=== PATIENT | male | born 1975 | race Two or more races ===

== ENCOUNTER 2017-12-28 17:10 | Inpatient (IN) | payer MEDICAID ==
[~2017-12-28] VITALS: Ht 170.2 cm; Wt 83.5 kg
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
--- NOTE | 2017-12-28 17:24 | NUR ---
DR HOBBS AT BEDSIDE FOR EVAL.
--- NOTE | 2017-12-28 17:40 | NUR ---
NEW IV STARTED ON LAC, 18G. BLOOD DRAWN AND SENT TO LAB
[2017-12-28 17:48] LABS: BASOPHILS % (AUTO) 0.3 % (0.0-2.0); EOSINOPHILS % (AUTO) 0.9 % (0.0-6.0); HEMATOCRIT 44 % (39-51); HEMOGLOBIN 14.9 g/dL (13.5-17.5); LYMPHOCYTES % (AUTO) 9.4 % (20.0-44.0); MEAN CORPUSCULAR HGB CONC 34 g/dl (31.0-36.0); MEAN CORPUSCULAR VOLUME 93 fL (80-96); MONOCYTES # (AUTO) 0.4 /CMM (0.1-1.30); MONOCYTES % (AUTO) 3.4 % (2.0-12.0); NEUTROPHILS # (AUTO) 9.1 /CMM (1.8-8.9); PLATELET COUNT (AUTO) 173 /CMM (150-450); RDW COEFFICIENT OF VARIATION 12.2 (11.5-15.0); RED BLOOD CELL COUNT(AUTO) 4.74 MIL/uL (4.5-6.0); WHITE BLOOD COUNT (AUTO) 10.6 K/uL (4.3-11.0)
[2017-12-28 17:58] LABS: CALCIUM, SERUM 8.4 mg/dL (8.5-10.1); CARBON DIOXIDE 30 mmol/L (21-32); CHLORIDE 105 mmol/L (98-107); GLUCOSE 114 mg/dL (74-106); POTASSIUM 3.6 mmol/L (3.5-5.1); SODIUM SERUM 137 mmol/L (136-145); UREA NITROGEN, BLOOD 14 mg/dL (7-18)
[2017-12-28 18:03] LABS: INR 0.97 (0.85-1.15)
[2017-12-28 18:04] LABS: ALANINE AMINOTRANSFERASE 22 U/L (12-78); ALBUMIN 4.2 g/dL (3.4-5.0); ALKALINE PHOSPHATASE 92 U/L (46-116); ASPARTATE AMINOTRANSFERASE 18 U/L (15-37); BILIRUBIN,DIRECT 0.2 mg/dL (0.0-0.2); BILIRUBIN,TOTAL 1.4 mg/dL (0.2-1.0); LIPASE 103 U/L (73-393); TOTAL PROTEIN, SERUM 7.4 g/dL (6.4-8.2)
[2017-12-28 18:06] LABS: TROPONIN I < 0.017 ng/mL (0.00-0.056)
[2017-12-28] MEDS ORDERED: IOHEXOL-300 100 ML VIAL IV ONE (18:09)
[2017-12-28] MEDS ORDERED: CT SWABBABLE VALVE TRANS SET 1 EA INFUS.SET MC ONE (18:09)
[2017-12-28] MEDS ORDERED: IV NS 0.9% 250 ML IV ONE (18:09)
--- NOTE | 2017-12-28 18:14 | NUR ---
PATIENT TAKEN TO CT VIA STRETCHER.
--- NOTE | 2017-12-28 18:27 | NUR ---
PATIENT RETURNED FROM CT IN STABLE CONDITION.
--- NOTE | 2017-12-28 19:06 | NUR ---
URINE OBTAINED AND SENT TO LAB.
--- NOTE | 2017-12-28 19:10 | NUR ---
REPORT GIVEN TO ADALGISA BLEVINS FOR ZEYNEP.
[2017-12-28 19:12] LABS: APPEARANCE,URINE Clear (CLEAR); BILIRUBIN,URINE Negative (NEGATIVE); BLOOD, URINE Moderate Ery/uL (NEGATIVE); COLOR,URINE Yellow (YELLOW); KETONES,URINE Negative (NEGATIVE); LEUKOCYTE ESTERASE ,URINE Trace (NEGATIVE); NITRITE, URINE Positive (NEGATIVE); PH,URINE 5.5 (5.0-8.0); PROTEIN,URINE Negative (NEGATIVE); UGLUCOSE Negative (NEGATIVE)
[2017-12-28 19:26] LABS: BACTERIA,URINE Many /HPF (None Seen); SQUAMOUS EPITHELIAL CELL,UR Few /HPF (None Seen)
[2017-12-28] MEDS ORDERED: PIPERACILLIN /TAZOBACTAM 3.375 G in IV D5W 50 ML IV ONE (19:30)
--- NOTE | 2017-12-28 19:37 | NUR ---
CALLED PHARMACY FOR TAHIRA
--- NOTE | 2017-12-28 19:41 | NUR ---
PAGED DR MORRISON FOR SURGERY CONSULT
--- NOTE | 2017-12-28 20:08 | NUR ---
US TECH AT BEDSIDE
[2017-12-28] MEDS ORDERED: MAGNESIUM HYDROXIDE 30 ML UDC PO PRN (20:30)
[2017-12-28] MEDS ORDERED: ONDANSETRON HCL/PF 4 MG/2 ML VIAL IVP PRN (20:30)
[2017-12-28] MEDS ORDERED: ONDANSETRON HCL/PF - ER 4 MG/2 ML VIAL IV ONE (20:30)
[2017-12-28] MEDS ORDERED: Z GUARD REMEDY 2 OZ OINT TP PRN (20:30)
[2017-12-28] MEDS ORDERED: MAG HYDROX/AL HYDROX/SIMETH 30 ML UDC PO PRN (20:30)
[2017-12-28] MEDS ORDERED: MORPHINE SULFATE INJ 2 MG/ML DISP.SYRIN IV PRN (20:30)
[2017-12-28] MEDS ORDERED: HYDROCODONE/APAP 5/325MG 1 EACH TABLET PO PRN (20:30)
[2017-12-28] MEDS ORDERED: ACETAMINOPHEN 325 MG TABLET PO PRN (20:30)
[2017-12-28] MEDS ORDERED: MORPHINE SULFATE INJ 2 MG/ML DISP.SYRIN IV ONE (20:30)
[2017-12-28] MEDS ORDERED: ZOLPIDEM TARTRATE 5 MG TABLET PO PRN (20:30)
--- NOTE | 2017-12-28 20:49 | NUR ---
REPORT GIVEN TO MICHAEL BLEVINS FOR ADMISSION
[2017-12-28] MEDS ORDERED: ONDANSETRON HCL/PF 4 MG/2 ML VIAL ONE (20:51)
[2017-12-28] MEDS ORDERED: MORPHINE SULFATE INJ 4 MG/ML DISP.SYRIN ONE (20:52)
--- NOTE | 2017-12-28 20:58 | NUR ---
PT TRANSPORTED TO [facility] IN GUARDED CONDITION VIA ACLS PROTOCOL WITH FAMILY AT BEDSIDE
[2017-12-28 21:00] VITALS: BP 132/84
--- NOTE | 2017-12-28 21:30 | NUR ---
X RAY OPERATOR NOTE: RECEIVED PATIENT FROM ER, NO ACUTE DISTRESS NOTED, FAMILY AT BEDSIDE. BREATHING EVEN AND UNLABORED, NO SOB NOTED. IV TO RIGHT HAND AND LAC IN PLACE. ORIENTED PATIENT TO ROOM AND USE OF CALL LIGHT. BED LOCKED AND IN LOWEST POSITION, CALL LIGHT IN REACH. WILL CONTINUE TO MONITOR. Addendum: 12/29/17 at 0147 by MICHAEL KERNS RN TELE READING SR 78.
[2017-12-29] MEDS: MORPHINE SULFATE INJ 4 MG/ML DISP.SYRIN IV PRN ×2 (01:27→07:08)
[2017-12-29] MEDS: IV NS 0.9% 1,000 ML IV PRN ×2 (01:27→18:58)
--- NOTE | 2017-12-29 01:45 | NUR ---
CALENDER OPERATOR NOTE: PATIENT COMPLAINS OF PAIN TO LEFT SHOULDER/CHEST/BACK AREA 8/, MORPHINE 2MG IV GIVEN PER MD ORDER. WILL CONTINUE TO MONITOR.
[2017-12-29 02:44] VITALS: BP 125/77
[2017-12-29 04:00] VITALS: BP 129/71
--- NOTE | 2017-12-29 06:05 | NUR ---
TRANSIT MIX OPERATOR NOTE: PATIENT RESTING IN BED, NO ACUTE DISTRESS NOTED, FAMILY AT BEDSIDE. BREATHING EVEN AND UNLABORED, NO SOB NOTED. IV TO RIGHT HAND IN PLACE. IV TO LAC IN PLACE, INFUSING NS AT 75 ML/HR. TELE READING SR 70. BED LOCKED AND IN LOWEST POSITION, CALL LIGHT IN REACH. WILL ENDORSE TODAY NURSE TO CONTINUE WITH PLAN OF CARE.
[2017-12-29 06:20] LABS: BASOPHILS % (AUTO) 0.3 % (0.0-2.0); EOSINOPHILS % (AUTO) 0.6 % (0.0-6.0); HEMATOCRIT 43 % (39-51); HEMOGLOBIN 14.2 g/dL (13.5-17.5); LYMPHOCYTES # (AUTO) 1.3 /CMM (0.8-4.8); LYMPHOCYTES % (AUTO) 15.6 % (20.0-44.0); MEAN CORPUSCULAR HGB CONC 33 g/dl (31.0-36.0); MEAN CORPUSCULAR VOLUME 95 fL (80-96); MONOCYTES # (AUTO) 0.6 /CMM (0.1-1.30); MONOCYTES % (AUTO) 7.1 % (2.0-12.0); NEUTROPHILS # (AUTO) 6.5 /CMM (1.8-8.9); NEUTROPHILS % (AUTO) 76.4 % (43.0-81.0); PLATELET COUNT (AUTO) 169 /CMM (150-450); RDW COEFFICIENT OF VARIATION 13.3 (11.5-15.0); RED BLOOD CELL COUNT(AUTO) 4.52 MIL/uL (4.5-6.0); WHITE BLOOD COUNT (AUTO) 8.5 K/uL (4.3-11.0)
[2017-12-29 06:54] LABS: ALBUMIN 3.8 g/dL (3.4-5.0); BILIRUBIN,TOTAL 1.8 mg/dL (0.2-1.0); CALCIUM, SERUM 8.2 mg/dL (8.5-10.1); CREATININE 0.9 mg/dL (0.6-1.3); POTASSIUM 3.7 mmol/L (3.5-5.1); TOTAL PROTEIN, SERUM 7.2 g/dL (6.4-8.2)
--- NOTE | 2017-12-29 07:30 | NUR ---
RN OPENING TELE NOTES RECEIVED PATIENT IN BED, RESTING, ACCOMPANIED BY AT BEDSIDE A&OX4, ENGLISH SPEAKING, VERBALLY RESPONSIVE AND ABLE TO MAKE NEEDS KNOWN. BREATHING SHALLOW BREATHS DUE TO PAIN OF THE LEFT UPPER CHEST AND SHOULDER. RECEIVED MORPHINE 20 MINUTES AGO, WILL REASSESS AFTER 15 MINUTES. VITALS REMAIN STABLE. RECEIVING IV FLUIDS VIA L AC #20, INFUSING NS @ 75ML/HR. PATIENT AWAITING SURGERY CONSULT FOR HEMOPERITONEUM, WILL CONTINUE TO MONITOR.
[2017-12-29 08:00] VITALS: BP 125/72
[2017-12-29 09:19] LABS: ABG BASE EXCESS 0.5 mmol/L; ABG OXYGEN SATURATION 94.8 % (92.0-98.5); ABG PCO2 40.1 mmHg (35.0-45.0); ABG PH 7.414 (7.350-7.450); ABG PO2 75.6 mmHg (75.0-100.0); AaDO2 26.1 mmHg; COHb 0.4 % (0.5-1.5); MetHb 0.5 % (0.0-1.5); O2Hb 93.9 % (94.0-97.0); SITE, ABG Right Radial; VENT MODE, BG ROOM AIR
--- NOTE | 2017-12-29 10:35 | NUR ---
ACCOUNT MANAGEMENT ASSISTANT NOTES PER DR. MORRISON, HE SAW THE PATIENT, WITH BENIGN ABDOMINAL EXAM, VERY STABLE, ORDERED TO START PT ON CLEAR LIQUID DIET.
[2017-12-29 11:35] LABS: HEMOGLOBIN 14.2 g/dL (13.5-17.5)
--- NOTE | 2017-12-29 12:35 | NUR ---
MARINA MANAGER NOTES SEEN BY PACKAGE LINE OPERATOR, PATIENT REMAINS STABLE, NO ACTIVE BLEEDING NOTED. 12:35 ADMINISTERED MORPHINE 2MG, WASTED PARTIAL DOSE OF 2 MG, DOSE LATER CHANGED TO 3MG BY PACKAGE LINE OPERATOR .
[2017-12-29] MEDS ORDERED: MORPHINE SULFATE INJ 4 MG/ML DISP.SYRIN IV PRN (13:30)
[2017-12-29] MEDS: CEFTRIAXONE 1 G in IV D5W 50 ML IV SCH (13:46)
[2017-12-29 16:00] VITALS: BP 110/66
--- NOTE | 2017-12-29 18:59 | NUR ---
DIESEL STATIONARY ENGINEER CLOSING NOTES PATIENT REMAINS IN BED, A&O X 4, BREATHING EVEN AND MINIMALLY LABORED. SWELLING FROM TONGUE VISIBLY REDUCED, SKIN DRY AND WARM TO TOUCH. PATIENT REMAINS STABLE. HUNG A NEW BAG OD NS 1000ML INFUSING AT 75ML/HR VIA L AC SITE AND TOLERATING. BED IN LOWEST LOCKED POSITION, ALL NEEDS ATTENDED TO. WILL ENDORSE TO BUSINESS INTELLIGENCE ENGINEER FOR ZEYNEP
--- NOTE | 2017-12-29 19:15 | NUR ---
MS RN NOTES RECEIVED PT IN BED, AWAKE, A/O X 4, VERBALLY RESPONSIVE. AT BEDSIDE. WATCHING TV AT THIS TIME. NO ACUTE DISTRESS NOR SOB AT THIS TIME. IV SITE ON LAC INTACT AND PATENT, NO S/S OF INFILTRATION NOTED, IVF INFUSING WELL. ON CLEAR LIQUID DIET, VERBALIZED UNDERSTANDING. PT C/O PAIN ON IV SITE ON RIGHT HAND, REQUESTED TO BE REMOVED, IV SITE ON RIGHT HAND REMOVED, PRESSURE APPLIED. NO BLEEDING NOTED. ICE PACK ON LEFT SHOULDER REFILLED. ALL NEEDS ATTENDED AND MET. COMFORTABLE VERBALIZED. SAFETY PRECAUTIONS OBSERVED. WILL CONTINUE TO MONITOR.
[2017-12-29 20:00] VITALS: BP 131/76
--- NOTE | 2017-12-29 20:27 | NUR ---
PT C/O LEFT SHOULDER PAIN 11/12, NON PHARMACOLOGICAL INTERVENTION RENDERED , ICE PACK APPLIED, INEFFECTIVE. PT REQUESTED FOR MORPHINE 3 MG GIVEN ORDERED, REMAINING 1 MG WASTED , WITNESSED BY GEN MCELROY. BP: 131/76, HR : 88, RR: 18, 02 SAT : 97 %, TEMP : 97.3. WILL CONT TO MONITOR.
--- NOTE | 2017-12-30 06:36 | NUR ---
MS RN NOTES PT IN BED, RESTING COMFORTABLY AT THIS TIME. A/O X 4, VERBALLY RESPONSIVE. NO ACUTE DISTRESS NOR SOB AT THIS TIME. IV SITE ON LAC INTACT AND PATENT, NO S/S OF INFILTRATION NOTED, IVF INFUSING WELL. ON CLEAR LIQUID DIET, CHRISTOPH WELL. ALL NEEDS ATTENDED AND MET. COMFORTABLE VERBALIZED. SAFETY PRECAUTIONS OBSERVED. WILL ENDORSE TO NEXT SHIFT FOR ZEYNEP.
--- NOTE | 2017-12-30 07:05 | NUR ---
MS RN NOTES PATIENT LYING IN BED, HOB, ALERT ORIENTED X 4. NO ACUTE DISTRESS NOTED. NO SOB NOTED. BREATHING UNLABORED.IVF INFUSING WELL, NO REDNESS OR SWELLING NOTED. SAFETY MEASURES IN PLACE. CALL LIGHT WITHIN REACH. WILL CONTINUE TO MONITOR ACCORDINGLY.
[2017-12-30 08:00] VITALS: BP 118/54
[2017-12-30] MEDS: IV NS 0.9% 1,000 ML IV PRN (08:59)
[2017-12-30 09:42] LABS: BASOPHILS % (AUTO) 0.6 % (0.0-2.0); EOSINOPHILS % (AUTO) 2.1 % (0.0-6.0); HEMATOCRIT 40 % (39-51); LYMPHOCYTES % (AUTO) 19.4 % (20.0-44.0); MEAN CORPUSCULAR HGB CONC 35 g/dl (31.0-36.0); MEAN CORPUSCULAR VOLUME 93 fL (80-96); MONOCYTES % (AUTO) 6.8 % (2.0-12.0); NEUTROPHILS % (AUTO) 71.1 % (43.0-81.0); PLATELET COUNT (AUTO) 157 /CMM (150-450); RDW COEFFICIENT OF VARIATION 13.2 (11.5-15.0); RED BLOOD CELL COUNT(AUTO) 4.29 MIL/uL (4.5-6.0); WHITE BLOOD COUNT (AUTO) 6.4 K/uL (4.3-11.0)
[2017-12-30] MEDS: CEFTRIAXONE 1 G in IV D5W 50 ML IV SCH (12:05)
--- NOTE | 2017-12-30 15:36 | NUR ---
MS RN NOTES RECEIVED NEW ORDER FROM FRANCES MORRISON NP TO ADVANCE DIET TO REGULAR, NOTED AND CARRIED OUT.
[2017-12-30 16:00] VITALS: BP 137/76
[2017-12-30] MEDS ORDERED: SULF1TAB48 PO (17:41)
--- NOTE | 2017-12-30 19:00 | NUR ---
MS RN NOTES PATIENT LYING IN BED ALERT ORIENTED X 4. NO ACUTE DISTRESS NOTED. NO SOB NOTED.DENIED ANY PAIN AT THIS TIME. BREATHING UNLABORED.IV ACCESS PATENT AND INTACT, NO REDNESS OR SWELLING NOTED. DUE MEDICATIONS GIVEN, NO ASE NOTED. NEEDS ATTENDED AND ANTICIPATED. SAFETY MEASURES IN PLACE. CALL LIGHT WITHIN REACH. PATIENT FOR DISCHARGE HOME WAITING FOR SON TO COME FOR CAMERA OPERATOR. EXIT CARE DONE, PATIENT WANTS TO SIGN DISCHARGE PAPERS WHEN THE SON ARRIVES. ENDORSE TO NIGHT NURSE FOR CONTINUITY OF CARE.
--- NOTE | 2017-12-30 19:10 | NUR ---
MS RN NOTES RECEIVED PT IN BED, AWAKE, A/O X 4. WATCHING TV, FAMILY MEMBER AT BEDSIDE. NO DISTRESS, NO SOB NOTED. STABLE. DENIES ANY PAIN OR DISCOMFORT AT THIS TIME,. IV SITE ON LAC INTACT AND PATENT, IVF INFUSING WELL. ALL NEEDS ATTENDED AND MET. KEPT COMFORTABLE. SAFETY PRECAUTIONS OBSERVED. CALL LIGHT WITHIN REACH. PT FOR DISCHARGE, JUST WAITING FOR SON TO YOUTH DIRECTOR. EXIT CARE DONE BY AM NURSE. WILL CONT TO MONITOR.
[2017-12-30 20:00] VITALS: BP 132/70
--- NOTE | 2017-12-30 20:10 | NUR ---
PT AND DECIDED TO LEAVE WITHOUT THE SON, PT REMAINS STABLE. NO DISTRESS, NO SOB. DENIES ANY PAIN OR DISCOMFORT AT THIS TIME. IV SITE ON LAC REMOVED, PRESSURE APPLIED. NO BLEEDING. DISCHARGE INSTRUCTIONS DISCUSSED WITH AND PT, VERBALIZED UNDERSTANDING. DC PAPERS AND PRESCRIPTIONS GIVEN TO AND PT. ALL BELONGINGS SENT HOME WITH THE PT. ABLE TO WALK AND GET IN THE ELEVATOR SAFELY.
== END 2017-12-30 20:10 | disposition home or self-care (01) | DRG 253 ==
LOC: ER 17:13 → TELE 20:44 → MED 12-29 15:16
PROVIDERS: ADMIT Internal Medicine; ATTEND Internal Medicine
DX: K66.1 Hemoperitoneum (principal); K83.1 Obstruction of bile duct; N39.0 Urinary tract infection, site not specified; V89.2XXA Person injured in unspecified motor-vehicle accident, traffic, initial encounter; Y92.410 Unspecified street and highway as the place of occurrence of the external cause; B96.89 Other specified bacterial agents as the cause of diseases classified elsewhere; S01.512A Laceration without foreign body of oral cavity, initial encounter
CPT/HCPCS: 36415; 36600; 70450-TC; 71260-TC; 72125-TC; 76705-TC; 80048-TC; 80053-TC; 80061-TC; 80076-TC; 81000-TC; 82803-TC; 83690-TC; 83735-TC; 84100-TC; 84484-TC; 85025-TC; 85027-TC; 85730-TC; 87081-TC; 87086-TC; 87186-TC; A4606; J0696; J2270; J2405; J2543; J7030; J7050; J7060; Q9967; Z7610